=== PATIENT | female | born 1950 | race American Indian/Alaskan Native ===

== ENCOUNTER → 2016-10-19 | Outpatient (CLI) | payer MEDICARE ==
[2016-10-19 13:43] LABS: BUN/Creatinine Ratio 13.18; Calcium 9.5 mg/dL (8.4-10.2); Chloride 98.4 mmol/L (98-107); Potassium 3.2 mmol/L (3.6-5.0)
== END ==
LOC: LAB 11:27
PROVIDERS: ATTEND Internal Medicine Nephrology
DX: R94.4 Abnormal results of kidney function studies (principal); I10 Essential (primary) hypertension; R80.9 Proteinuria, unspecified; R60.9 Edema, unspecified
CPT/HCPCS: 36415; 80048